=== PATIENT | male | born 1965 | race Caucasian/White ===

== ENCOUNTER 2017-10-20 17:39 | Emergency (ER) | payer OTHER ==
[~2017-10-20] VITALS: Ht 190.5 cm; Wt 102.2 kg
[2017-10-20 18:02] LABS: HEMOGLOBIN 16.7 G/DL (12.5-16.6); MCHC 34.8 G/DL (30.0-36.0); MCV 89.2 FL (86-99); PLATELET COUNT 333 K/uL (156-360); RBC DIS.WIDTH-CV 12.5 % (11.8-14.6); RBC DIS.WIDTH-SD 41.1 % (39-53); RED BLOOD COUNT 5.38 M/uL (4.00-5.50); WHITE BLOOD COUNT 8.8 K/uL (4.1-10.2)
[2017-10-20 18:09] LABS: ALBUMIN 4.8 g/dL (3.2-4.8)
[2017-10-20 18:10] LABS: CHLORIDE 104 mEq/L (99-109); POTASSIUM 3.6 mEq/L (3.7-5.4); SODIUM 140 mEq/L (136-147)
[2017-10-20 18:12] LABS: GLUCOSE 104 mg/dL (70-99); TOTAL PROTEIN 7.9 g/dL (6.4-8.3)
[2017-10-20 18:14] LABS: TOTAL BILIRUBIN 0.9 mg/dL (0.0-1.0)
[2017-10-20 18:15] LABS: ALKALINE PHOSPHATASE 104 IU/L (3-129)
[2017-10-20 18:16] LABS: GFR ESTIMATE (CALCULATED) > 59 mL/min/ (58.99-99999)
[2017-10-20 18:17] LABS: AST (GOT) 29 IU/L (2-34); UREA NITROGEN (BUN) 17 mg/dL (9-23)
[2017-10-20 18:18] LABS: ALT (GPT) 41 IU/L (3-49)
[2017-10-20 18:58] LABS: ALBUMIN 4.5 g/dL (3.2-4.8); CHLORIDE 105 mEq/L (99-109); POTASSIUM 3.6 mEq/L (3.7-5.4); SODIUM 140 mEq/L (136-147)
[2017-10-20 19:01] LABS: GLUCOSE 94 mg/dL (70-99); TOTAL PROTEIN 7.3 g/dL (6.4-8.3)
[2017-10-20 19:03] LABS: TOTAL BILIRUBIN 0.9 mg/dL (0.0-1.0)
[2017-10-20 19:04] LABS: ALKALINE PHOSPHATASE 96 IU/L (3-129)
[2017-10-20 19:05] LABS: CREATININE 0.9 mg/dL (0.6-1.3); GFR ESTIMATE (CALCULATED) > 59 mL/min/ (58.99-99999)
[2017-10-20 19:06] LABS: AST (GOT) 28 IU/L (2-34); DIRECT BILIRUBIN 0.3 mg/dL (0.0-0.3); UREA NITROGEN (BUN) 17 mg/dL (9-23)
[2017-10-20 19:07] LABS: ALT (GPT) 39 IU/L (3-49)
[2017-10-20 19:08] LABS: LIPASE 57 U/L (1.0-51.0)
[2017-10-20 21:07] LABS: APPEARANCE CLEAR ((CLEAR)); BILIRUBIN NEGATIVE; BLOOD NEGATIVE; COLOR YELLOW ((YELLOW)); GLUCOSE (STRIP) NEGATIVE; KETONES 20; LEUKOCYTES MODERATE; NITRITE NEGATIVE; PROTEIN (STRIP) NEGATIVE; SPECIFIC GRAVITY 1.019 (1.000-1.030); UROBILINOGEN 0.2 MG/DL (0.2-1.0)
[2017-10-20 21:17] LABS: BACTERIA RARE /HPF; EPITHELIAL CELLS 1+ /HPF; MUCUS TRACE /LPF; RED BLOOD CELLS 0-5 /HPF (0-5); UCUL ADDED? YES; WHITE BLOOD CELLS 40-50 /HPF (0-5)
[2017-10-20] MEDS ORDERED: MIRALAX255 GM PO (22:04)
[2017-10-20 22:19] VITALS: BP 151/91
[2017-10-21] MEDS ORDERED: ONDANSETRON HCL8 MG PO (17:08)
[2017-10-21] MEDS ORDERED: COLACE100 MG PO (17:08)
[2017-10-21] MEDS ORDERED: DILAUDID4 MG PO (17:08)
== END 2017-10-20 22:20 | disposition home or self-care (01) ==
LOC: EME 17:39
PROVIDERS: Physician Assistant
DX: K40.90 Unilateral inguinal hernia, without obstruction or gangrene, not specified as recurrent (principal)
CPT/HCPCS: 74176; 80048 91; 80053; 80076; 81003; 83605; 83690; 85025; 85027; 87086; 99281; 99284

== ENCOUNTER 2017-10-21 12:11 | Day surgery (SDC) | payer OTHER ==
[~2017-10-21] VITALS: Ht 190.5 cm; Wt 102.2 kg
[~2017-10-21 12:11] MED LIST changes: -CIPRO500 MG PO; -COLACE100 MG PO; -DILAUDID4 MG PO; -ONDANSETRON HCL8 MG PO
[2017-10-21 12:58] VITALS: BP 126/80
[2017-10-21] MEDS ORDERED: COLACE100 MG PO (17:08)
[2017-10-21] MEDS ORDERED: ONDANSETRON HCL8 MG PO (17:08)
[2017-10-21] MEDS ORDERED: DILAUDID4 MG PO (17:08)
[2017-10-21 20:01] VITALS: BP 128/66
[2017-10-22 00:54] VITALS: BP 130/75
[2017-10-22 04:35] VITALS: BP 113/63
[2017-10-22 06:34] LABS: HEMATOCRIT 42.6 % (38.0-50.0); MCH 30.2 PG (29.0-34.0); MCHC 33.6 G/DL (30.0-36.0); MCV 90.1 FL (86-99); PLATELET COUNT 294 K/uL (156-360); RBC DIS.WIDTH-CV 12.5 % (11.8-14.6); RBC DIS.WIDTH-SD 41.4 % (39-53); RED BLOOD COUNT 4.73 M/uL (4.00-5.50); WHITE BLOOD COUNT 9.9 K/uL (4.1-10.2)
[2017-10-22 06:50] LABS: HEMOGLOBIN 14.3 G/DL (12.5-16.6)
[2017-10-22 07:01] LABS: CHLORIDE 104 MEQ/L (99-109); CREATININE 0.8 MG/DL (0.6-1.3); GFR ESTIMATE (CALCULATED) > 59 mL/min/ (58.99-99999); GLUCOSE 125 mg/dL (70-99); POTASSIUM 4.2 MEQ/L (3.7-5.4); SODIUM 139 MEQ/L (136-147); UREA NITROGEN (BUN) 13 mg/dL (9-23)
[2017-10-22 08:10] VITALS: BP 122/66
[2017-10-22] MEDS ORDERED: CIPRO500 MG PO (08:58)
[2017-10-22 10:53] VITALS: BP 122/66
== END 2017-10-22 13:20 | disposition home or self-care (01) ==
LOC: SDC → 2EASTP 17:05 → 2SOUTH 17:05 → ENRESERV 17:53 → SDC 17:53 → ENRESERV 18:21 → 2EASTP 19:56
PROVIDERS: Surgery
PROC: 0YUA4JZ Supplement Bilateral Inguinal Region with Synthetic Substitute, Percutaneous Endoscopic Approach (ICD-10-PCS; principal; 2017-10-21)
DX: K40.00 Bilateral inguinal hernia, with obstruction, without gangrene, not specified as recurrent (principal); D17.6 Benign lipomatous neoplasm of spermatic cord
CPT/HCPCS: 80048; 85027; 88304; C1781; G0378; J0131; J0330; J0690; J0744; J1100; J1170; J2405; J2765; J3010; J7120; Q0175

== ENCOUNTER → 2017-10-21 | Outpatient (CLI) | payer OTHER ==
[~2017-10-21] MED LIST: CIPRO500 MG PO; COLACE100 MG PO; DILAUDID4 MG PO; MIRALAX255 GM PO; ONDANSETRON HCL8 MG PO
== END | disposition home or self-care (01) ==
LOC: CDC 11:06
DX: Z01.810 Encounter for preprocedural cardiovascular examination (principal); K40.30 Unilateral inguinal hernia, with obstruction, without gangrene, not specified as recurrent; I45.10 Unspecified right bundle-branch block
CPT/HCPCS: 93000